=== PATIENT | female | born 1985 | race Caucasian/White ===

== ENCOUNTER 2019-05-01 11:22 | Outpatient (CLI) | payer OTHER ==
[2019-05-01] MEDS ORDERED: BARIUM SULFATE 135 ML SUSP.RECON (E-Z-HD) PO ONE (11:48)
== END 2019-05-01 17:56 | disposition home or self-care (01) ==
LOC: SRD 11:22
PROVIDERS: ATTEND Specialist
DX: R13.19 Other dysphagia (principal)
CPT/HCPCS: 74220-TC